=== PATIENT | male | born 1995 | race Caucasian/White ===

== ENCOUNTER → 2020-01-03 | Outpatient (REF) | payer BC, OTHER, SELFPAY ==
[2020-01-04 15:25] LABS: CHLAMYDIA DNA AMPLIFICATION NEGATIVE (NEGATIVE); GC DNA AMPLIFICATION NEGATIVE (NEGATIVE)
== END ==
LOC: M LAB REF 12:50
PROVIDERS: ATTEND Nurse Practitioner Family
DX: R30.0 Dysuria (principal); Z20.2 Contact with and (suspected) exposure to infections with a predominantly sexual mode of transmission